=== PATIENT | male | born 1950 | race Caucasian/White ===

== ENCOUNTER 2017-03-16 07:08 | Day surgery (SDC) | payer BC, OTHER ==
[2017-03-16] MEDS ORDERED: PROPOFOL 20 ML ONE ×2 (07:11)
[2017-03-16 07:29] VITALS: BMI 29.1
[2017-03-16] MEDS ORDERED: LIDOCAINE HCL/PF 2% SDV 5ML VIAL ONE (07:35)
[2017-03-16 08:59] VITALS: TEMP 97.6
[2017-03-16 10:23] VITALS: BP 119/72; PULSE 72
--- NOTE | 2017-03-17 11:43 | PATH ---
Surgical Pathology Report Patient Name: PROSPER JALLOH [facility]. Rec. #: [id number] /Age/Gender: 1950 (Age: 66) / M Account: [id number] Location: [facility] / [facility]-ENDOSCOPY Taken: 03/16/2017 Received: 03/16/2017 Reported: 03/17/2017 Physicians: Darryl Brower M.D. Specimen(s) Received BX RIGHT COLON Clinical History History of colonic polyps Polyp Final Diagnosis COLON, RIGHT, BIOPSY: TUBULAR ADENOMA. Electronically Signed Matt Beckham M.D. Gross Description Received in formalin, labeled "right colon" is a marshall, irregular portion of soft tissue measuring 0.3 cm. in greatest dimension. The specimen is submitted in toto in one cassette. /03/16/2017 saudi03/16/2017
== END 2017-03-16 09:30 | disposition home or self-care (01) ==
LOC: FASU-ENDO 07:08
PROVIDERS: ATTEND Internal Medicine Gastroenterology
PROC: 0DBK8ZX Excision of Ascending Colon, Via Natural or Artificial Opening Endoscopic, Diagnostic (ICD-10-PCS; principal; 2017-03-16 08:27)
DX: Z86.010 Personal history of colon polyps (principal); Z83.71 Family history of colonic polyps; D12.2 Benign neoplasm of ascending colon; K57.30 Diverticulosis of large intestine without perforation or abscess without bleeding
CPT/HCPCS: 88305-TC

== ENCOUNTER 2022-09-19 07:12 | Day surgery (SDC) | payer OTHER, MEDICARE ==
[2022-09-16 12:16] VITALS: BMI 26.9
[2022-09-19] MEDS ORDERED: LIDOCAINE HCL/PF 2% SDV 5ML VIAL ONE (07:35)
[2022-09-19] MEDS ORDERED: PROPOFOL 120 ML ONE (07:35)
[2022-09-19 14:33] VITALS: TEMP 98
[2022-09-19 14:36] VITALS: RESP 17
[2022-09-19 14:38] VITALS: BP 100/66; PULSE 68
== END 2022-09-19 09:25 | disposition home or self-care (01) ==
LOC: FASU-ENDO 07:12
PROVIDERS: ATTEND Internal Medicine Gastroenterology
PROC: 0DJD8ZZ Inspection of Lower Intestinal Tract, Via Natural or Artificial Opening Endoscopic (ICD-10-PCS; principal; 2022-09-19 08:19)
DX: Z12.11 Encounter for screening for malignant neoplasm of colon (principal); Z86.010 Personal history of colon polyps; K57.30 Diverticulosis of large intestine without perforation or abscess without bleeding